=== PATIENT | male | born 1990 | race Caucasian/White ===

== ENCOUNTER 2021-10-30 22:09 | Inpatient (IN) | payer MEDICAID ==
[~2021-10-30] VITALS: Ht 188 cm; Wt 109.2 kg
[2021-10-30] MEDS ORDERED: DIAZEPAM 5 MG/ML 2 ML SYRINGE IM ONE (23:00)
[2021-10-30] MEDS ORDERED: HALOPERIDOL LACTATE 5 MG/ML VIAL IM ONE (23:00)
[2021-10-30] MEDS ORDERED: DiphenhydrAMINE HCL 50 MG/ML VIAL IM ONE (23:00)
[2021-10-30 23:34] LABS: COVID AG,FIA SOURCE NASOPHARYNGEAL
[2021-10-31] VITALS (8 sets, daily range): BP systolic 116–151; BP diastolic 64–102
[2021-10-31] MEDS ORDERED: ZIPRASIDONE MESYLATE 20 MG/VIAL IM ONE
[2021-10-31 01:11] LABS: BASOPHILS % (AUTO) 0.6 % (0.0-2.0); EOSINOPHILS % (AUTO) 0.1 % (1.0-6.0); HEMATOCRIT 43.7 % (41-53); HEMOGLOBIN 15.2 g/dL (13.5-17.5); LYMPHOCYTES % (AUTO) 22.9 % (22.0-44.0); MEAN CORPUSCULAR HEMOGLOBIN 32.5 pg (26.0-34.0); MEAN CORPUSCULAR HGB CONC 34.8 G/dL (31.0-37.0); MEAN CORPUSCULAR VOLUME 94 fL (80-100); MONOCYTES # (AUTO) 0.9 K/uL (0.1-1.0); MONOCYTES % (AUTO) 10.8 % (2.0-9.0); NEUTROPHILS # (AUTO) 5.7 K/uL (1.8-7.7); NEUTROPHILS % (AUTO) 65.6 % (40.0-70.0); PLATELET COUNT (AUTO) 210 K/uL (150-450); RED BLOOD CELL COUNT(AUTO) 4.68 MIL/uL (4.50-5.90); RED CELL DISTRIBUTION WIDTH 12.4 % (11.5-14.5)
[2021-10-31 01:22] LABS: ANION GAP 12 mmol/L (8-16); CALCIUM, TOTAL 9.4 mg/dL (8.8-10.5); CARBON DIOXIDE 28 mmol/L (22-29); CHLORIDE 102 mmol/L (98-107); CREATININE 1.09 mg/dL (0.60-1.30); GLUCOSE,RANDOM 105 mg/dL (70-110); POTASSIUM 3.9 mmol/L (3.5-5.1); SODIUM SERUM 142 mmol/L (136-145); UREA NITROGEN, BLOOD 15 mg/dL (7-18)
[2021-10-31 01:23] LABS: GLOMERULAR FILTR. RATE CALC > 60 mL/min (>60)
[2021-10-31 01:36] LABS: ALANINE AMINOTRANSFERASE 244 U/L (12-78); ALBUMIN 3.8 g/dL (3.4-5.0); ALKALINE PHOSPHATASE 65 U/L (46-116); ASPARTATE AMINOTRANSFERASE 311 U/L (15-37); BILIRUBIN,TOTAL 1.5 mg/dL (0.1-1.0); TOTAL PROTEIN, SERUM 7.4 g/dL (6.4-8.2)
[2021-10-31 03:19] LABS: AMPHET/METH SCREEN,URINE NEGATIVE (NEGATIVE); BARBITURATE SCREEN, URINE NEGATIVE (NEGATIVE); BENZODIAZEPINES SCREEN,URINE POSITIVE (NEGATIVE); CANNABINOID SCREEN,URINE NEGATIVE (NEGATIVE); COCAINE SCREEN,URINE NEGATIVE (NEGATIVE); METHADONE SCREEN, URINE NEGATIVE (NEGATIVE); OPIATE SCREEN,URINE NEGATIVE (NEGATIVE); PHENCYCLIDINE SCREEN,URINE NEGATIVE (NEGATIVE)
[2021-10-31] MEDS ORDERED: ZOLPIDEM TARTRATE 10 MG TABLET PO PRN (04:15)
[2021-10-31] MEDS ORDERED: SODIUM CHLORIDE 0.9% 1,000 ML ONE (04:19)
[2021-10-31 04:27] LABS: APPEARANCE,URINE CLEAR (CLEAR); BILIRUBIN,URINE NEGATIVE (NEGATIVE); GLUCOSE, URINE (UA) NEGATIVE (NEGATIVE); KETONES,URINE NEGATIVE (NEGATIVE); LEUKOCYTE ESTERASE ,URINE NEGATIVE (NEGATIVE); NITRATE,URINE NEGATIVE (NEGATIVE); OCCULT BLOOD,URINE LARGE (NEGATIVE); PROTEIN,URINE 30-70 mg/dL (NEGATIVE); SPECIFIC GRAVITIY, URINE 1.016 (1.003-1.030); UROBILINOGEN,URINE <=1.0 mg/dL (<=1.0)
[2021-10-31 04:39] LABS: BACTERIA,URINE None Seen /HPF (None Seen); HYALINE CASTS, URINE 0-2 /LPF (None Seen); RBC,URINE 0-2 /HPF (0-2); WBC,URINE None Seen /HPF (0-5)
[2021-10-31] MEDS ORDERED: PROMETHAZINE HCL 25 MG TABLET PO PRN (11:30)
[2021-10-31] MEDS ORDERED: CYANOCOBALAMIN 1,000 MCG/ML VIAL IM ONE (11:30)
[2021-10-31] MEDS ORDERED: TUBERCULIN, PURIFIED PROTEIN DERIVATIVE 5 TU/0.1 ML SYRINGE ID ONE (11:30)
[2021-10-31] MEDS ORDERED: MAGNESIUM HYDROXIDE SUSPENSION 30 ML UDCUP PO PRN (11:30)
[2021-10-31] MEDS ORDERED: LOPERAMIDE HCL 2 MG CAPSULE PO PRN ×2 (11:30)
[2021-10-31] MEDS ORDERED: GuaiFENesin/D-METHORPHAN [SUGAR-FREE] 200-20MG/10 ML SYRUP UDCUP PO PRN (11:30)
[2021-10-31] MEDS ORDERED: LORazepam 2 MG TABLET PO PRN (11:30)
[2021-10-31] MEDS ORDERED: MAG HYDROX/AL HYDROX/SIMETH ES 30 ML SUSPENSION UDCUP PO PRN (11:30)
[2021-10-31] MEDS ORDERED: ACETAMINOPHEN 325 MG TABLET PO PRN (11:30)
[2021-10-31] MEDS: LORazepam 2 MG TABLET PO SCH (11:50)
[2021-10-31] MEDS: OLANZapine 5 MG RAPDIS TABLET PO PRN (11:51)
[2021-10-31] MEDS: HydrOXYzine PAMOATE 50 MG CAPSULE PO PRN (11:51)
[2021-10-31] MEDS: GATIFLOXACIN 0.5% 2.5 ML OPHTHALMIC SOLUTION OD SCH ×3 (13:44→20:10)
[2021-10-31] MEDS: THIAMINE 100 MG TABLET PO SCH (16:08)
[2021-10-31] MEDS: OLANZapine 5 MG RAPDIS TABLET PO SCH (20:09)
[2021-10-31] MEDS: MIRTAZAPINE 15 MG TABLET PO SCH (20:09)
[2021-10-31] MEDS: MELATONIN 5 MG TABLET PO SCH (20:09)
[2021-11-01] MEDS ORDERED: LORazepam 2 MG TABLET PO PRN (07:00)
[2021-11-01 07:11] LABS: HEMOGLOBIN A1C 5.2 % (3.8-5.6)
[2021-11-01 07:23] LABS: CHOL/HDL RATIO 2.6 (4.2-7.3); FREE T4 (FREE THYROXINE) 1.06 ng/dL (0.76-1.46); THYROID STIMULATING HORMONE 0.44 uIU/mL (0.36-3.74)
[2021-11-01 08:00] LABS: COVID AG,FIA SOURCE NASAL SWAB
[2021-11-01 08:16] VITALS: BP 150/93
[2021-11-01] MEDS: FOLIC ACID 1 MG TABLET PO SCH (08:52)
[2021-11-01] MEDS: HydrOXYzine PAMOATE 50 MG CAPSULE PO PRN (08:52)
[2021-11-01] MEDS: THIAMINE 100 MG TABLET PO SCH ×2 (08:52→16:03)
[2021-11-01] MEDS: OMEGA-3/DHA/EPA/FISH OIL 1,000 MG CAPSULE PO SCH (08:52)
[2021-11-01] MEDS: MULTIVITAMINS WITH MINERALS, THERAPEUTIC TABLET PO SCH (08:53)
[2021-11-01] MEDS: GATIFLOXACIN 0.5% 2.5 ML OPHTHALMIC SOLUTION OD SCH ×4 (08:53→20:04)
[2021-11-01] MEDS: LORazepam 2 MG TABLET PO PRN (08:53)
[2021-11-01] MEDS: OLANZapine 5 MG RAPDIS TABLET PO PRN (08:53)
[2021-11-01] MEDS: NALTREXONE HCL 50 MG TABLET PO SCH (08:53)
[2021-11-01] MEDS: IBUPROFEN 600 MG TABLET PO PRN (08:55)
[2021-11-01] MEDS: LORazepam 2 MG TABLET PO SCH ×3 (10:19→20:03)
[2021-11-01] MEDS: NICOTINE 21 MG/24 HOUR PATCH TD PRN (10:21)
[2021-11-01 12:54] VITALS: BP 154/93
[2021-11-01] MEDS ORDERED: CloNIDine HCL 0.1 MG TABLET PO PRN (16:00)
[2021-11-01 16:02] VITALS: BP 153/75
[2021-11-01 16:39] VITALS: BP 133/75
[2021-11-01] MEDS: MELATONIN 5 MG TABLET PO SCH (20:03)
[2021-11-01] MEDS: OLANZapine 5 MG RAPDIS TABLET PO SCH (20:03)
[2021-11-01] MEDS: MIRTAZAPINE 15 MG TABLET PO SCH (20:03)
[2021-11-02 08:08] VITALS: BP 138/66
[2021-11-02] MEDS: NALTREXONE HCL 50 MG TABLET PO SCH (08:17)
[2021-11-02] MEDS: GATIFLOXACIN 0.5% 2.5 ML OPHTHALMIC SOLUTION OD SCH ×4 (08:18→20:53)
[2021-11-02] MEDS: LORazepam 2 MG TABLET PO SCH ×4 (08:20→20:52)
[2021-11-02] MEDS: THIAMINE 100 MG TABLET PO SCH ×2 (08:20→16:05)
[2021-11-02] MEDS: NICOTINE 21 MG/24 HOUR PATCH TD PRN (08:20)
[2021-11-02] MEDS: MULTIVITAMINS WITH MINERALS, THERAPEUTIC TABLET PO SCH (08:21)
[2021-11-02] MEDS: AmLODIPine BESYLATE 5 MG TABLET PO SCH (08:21)
[2021-11-02] MEDS: OMEGA-3/DHA/EPA/FISH OIL 1,000 MG CAPSULE PO SCH (08:21)
[2021-11-02] MEDS: OLANZapine 5 MG RAPDIS TABLET PO PRN (08:21)
[2021-11-02] MEDS: FOLIC ACID 1 MG TABLET PO SCH (08:22)
[2021-11-02] MEDS: IBUPROFEN 600 MG TABLET PO PRN (08:28)
[2021-11-02] MEDS ORDERED: BACITRACIN 28 GM OINTMENT TP ONE (10:28)
[2021-11-02] MEDS: BACITRACIN 28 GM OINTMENT TP SCH (14:21)
[2021-11-02 16:02] VITALS: BP 126/82
[2021-11-02] MEDS: MELATONIN 5 MG TABLET PO SCH (20:52)
[2021-11-02] MEDS: OLANZapine 5 MG RAPDIS TABLET PO SCH (20:53)
[2021-11-02] MEDS: MIRTAZAPINE 15 MG TABLET PO SCH (20:53)
[2021-11-03] MEDS ORDERED: LORazepam 1 MG TABLET PO PRN (07:00)
[2021-11-03 08:00] VITALS: BP 157/90
[2021-11-03 08:07] VITALS: BP 102/58
[2021-11-03] MEDS: BACITRACIN 28 GM OINTMENT TP SCH (08:07)
[2021-11-03] MEDS: OMEGA-3/DHA/EPA/FISH OIL 1,000 MG CAPSULE PO SCH (08:07)
[2021-11-03] MEDS: FOLIC ACID 1 MG TABLET PO SCH (08:07)
[2021-11-03] MEDS: NALTREXONE HCL 50 MG TABLET PO SCH (08:07)
[2021-11-03] MEDS: AmLODIPine BESYLATE 5 MG TABLET PO SCH (08:07)
[2021-11-03] MEDS: GATIFLOXACIN 0.5% 2.5 ML OPHTHALMIC SOLUTION OD SCH ×4 (08:07→20:10)
[2021-11-03] MEDS: THIAMINE 100 MG TABLET PO SCH ×2 (08:07→16:34)
[2021-11-03] MEDS: NICOTINE 21 MG/24 HOUR PATCH TD PRN (08:07)
[2021-11-03] MEDS: IBUPROFEN 600 MG TABLET PO PRN (08:07)
[2021-11-03] MEDS: MULTIVITAMINS WITH MINERALS, THERAPEUTIC TABLET PO SCH (08:07)
[2021-11-03] MEDS: LORazepam 1 MG TABLET PO SCH ×4 (08:09→20:11)
[2021-11-03] MEDS: LORazepam 2 MG TABLET PO PRN (10:15)
[2021-11-03 16:18] VITALS: BP 144/97
[2021-11-03] MEDS: MELATONIN 5 MG TABLET PO SCH (20:10)
[2021-11-03] MEDS: OLANZapine 5 MG RAPDIS TABLET PO SCH (20:11)
[2021-11-03] MEDS: MIRTAZAPINE 15 MG TABLET PO SCH (20:11)
[2021-11-04] MEDS ORDERED: LORazepam 1 MG TABLET PO PRN (07:00)
[2021-11-04 08:00] VITALS: BP 150/100
[2021-11-04] MEDS: OMEGA-3/DHA/EPA/FISH OIL 1,000 MG CAPSULE PO SCH (08:06)
[2021-11-04] MEDS: FOLIC ACID 1 MG TABLET PO SCH (08:06)
[2021-11-04] MEDS: AmLODIPine BESYLATE 5 MG TABLET PO SCH (08:06)
[2021-11-04] MEDS: NALTREXONE HCL 50 MG TABLET PO SCH (08:06)
[2021-11-04] MEDS: MULTIVITAMINS WITH MINERALS, THERAPEUTIC TABLET PO SCH (08:06)
[2021-11-04] MEDS: THIAMINE 100 MG TABLET PO SCH ×2 (08:06→16:28)
[2021-11-04] MEDS: GATIFLOXACIN 0.5% 2.5 ML OPHTHALMIC SOLUTION OD SCH ×4 (08:13→20:03)
[2021-11-04] MEDS: BACITRACIN 28 GM OINTMENT TP SCH (09:00)
[2021-11-04 16:00] VITALS: BP 122/75
[2021-11-04] MEDS: LORazepam 2 MG TABLET PO PRN (16:30)
[2021-11-04 17:09] LABS: HEPATITIS C AB (EIA) >11.0 s/co ratio (0.0-0.9); HEPATITIS C RT-PCR,QNT 242000 IU/mL
[2021-11-04] MEDS: HydrOXYzine PAMOATE 50 MG CAPSULE PO PRN (19:59)
[2021-11-04] MEDS: OLANZapine 5 MG RAPDIS TABLET PO SCH (20:02)
[2021-11-04] MEDS: MIRTAZAPINE 15 MG TABLET PO SCH (20:03)
[2021-11-04] MEDS: MELATONIN 5 MG TABLET PO SCH (20:04)
[2021-11-05 08:11] VITALS: BP 136/86
[2021-11-05] MEDS: THIAMINE 100 MG TABLET PO SCH ×2 (08:22→16:19)
[2021-11-05] MEDS: AmLODIPine BESYLATE 5 MG TABLET PO SCH (08:22)
[2021-11-05] MEDS: FOLIC ACID 1 MG TABLET PO SCH (08:22)
[2021-11-05] MEDS: LORazepam 2 MG TABLET PO PRN ×2 (08:22→16:19)
[2021-11-05] MEDS: OMEGA-3/DHA/EPA/FISH OIL 1,000 MG CAPSULE PO SCH (08:22)
[2021-11-05] MEDS: MULTIVITAMINS WITH MINERALS, THERAPEUTIC TABLET PO SCH (08:22)
[2021-11-05] MEDS: NALTREXONE HCL 50 MG TABLET PO SCH (08:26)
[2021-11-05] MEDS: BACITRACIN 28 GM OINTMENT TP SCH (08:27)
[2021-11-05] MEDS: GATIFLOXACIN 0.5% 2.5 ML OPHTHALMIC SOLUTION OD SCH ×4 (08:27→20:17)
[2021-11-05] MEDS: NICOTINE 21 MG/24 HOUR PATCH TD PRN (12:51)
[2021-11-05 16:43] VITALS: BP 133/83
[2021-11-05] MEDS: OLANZapine 5 MG RAPDIS TABLET PO SCH (20:17)
[2021-11-05] MEDS: MELATONIN 5 MG TABLET PO SCH (20:17)
[2021-11-05] MEDS: MIRTAZAPINE 15 MG TABLET PO SCH (20:17)
[2021-11-06 07:14] LABS: COVID AG,FIA SOURCE NASAL SWAB
[2021-11-06] MEDS: GATIFLOXACIN 0.5% 2.5 ML OPHTHALMIC SOLUTION OD SCH ×2 (07:27→11:56)
[2021-11-06] MEDS: OMEGA-3/DHA/EPA/FISH OIL 1,000 MG CAPSULE PO SCH (07:27)
[2021-11-06] MEDS: AmLODIPine BESYLATE 5 MG TABLET PO SCH (07:27)
[2021-11-06] MEDS: FOLIC ACID 1 MG TABLET PO SCH (07:27)
[2021-11-06] MEDS: THIAMINE 100 MG TABLET PO SCH (07:27)
[2021-11-06] MEDS: NICOTINE 21 MG/24 HOUR PATCH TD PRN (07:27)
[2021-11-06] MEDS: NALTREXONE HCL 50 MG TABLET PO SCH (07:27)
[2021-11-06] MEDS: MULTIVITAMINS WITH MINERALS, THERAPEUTIC TABLET PO SCH (07:28)
[2021-11-06] MEDS: BACITRACIN 28 GM OINTMENT TP SCH (07:28)
[2021-11-06 08:16] VITALS: BP 143/72
[2021-11-06] MEDS: IBUPROFEN 600 MG TABLET PO PRN (08:45)
[2021-11-06] MEDS: LORazepam 2 MG TABLET PO PRN (08:45)
[2021-11-06] MEDS: OLANZapine 5 MG RAPDIS TABLET PO PRN (08:47)
[2021-11-06] MEDS ORDERED: OLAN5TAB94 PO (10:26)
[2021-11-06] MEDS ORDERED: MELA5TAB40 PO (10:26)
[2021-11-06] MEDS ORDERED: NALT50TA PO (10:26)
[2021-11-06] MEDS ORDERED: OMEG-108 PO (10:26)
[2021-11-06] MEDS ORDERED: MIRT-89 PO (10:26)
[2021-11-06] MEDS ORDERED: AMLO-257 PO (13:28)
[2021-11-06] MEDS ORDERED: GATI2.5D4 OU (13:30)
== END 2021-11-06 15:08 | disposition home or self-care (01) | DRG 750 ==
LOC: EMS 22:12 → 3EC 10-31 05:41
PROVIDERS: ADMIT Psychiatry & Neurology Psychiatry; ATTEND Psychiatry & Neurology Psychiatry
DX: F25.0 Schizoaffective disorder, bipolar type (principal); K70.10 Alcoholic hepatitis without ascites; K70.30 Alcoholic cirrhosis of liver without ascites; Z59.00 Homelessness unspecified; J44.9 Chronic obstructive pulmonary disease, unspecified; F10.129 Alcohol abuse with intoxication, unspecified; Z20.822 Contact with and (suspected) exposure to COVID-19; R79.89 Other specified abnormal findings of blood chemistry; R31.9 Hematuria, unspecified; Z87.891 Personal history of nicotine dependence; Z79.899 Other long term (current) drug therapy
CPT/HCPCS: 80053; 80061; 80074; 81001; 83036; 84439; 84443; 85025; 86592; 87522; 99291; G0480; J1200; J1630; J3420; J3486; J7030; Q9967